=== PATIENT | male | born 1950 | race Caucasian/White ===

== ENCOUNTER 2019-04-30 14:51 | Inpatient (IN) | payer MEDICARE, OTHER ==
[~2019-04-30] VITALS: Ht 172.7 cm; Wt 108.6 kg
[2019-04-30 15:32] LABS: BASOPHILS ABSOLUTE AUTO 0.04 K/mm3 (0.00-0.23); BASOPHILS PERCENT AUTO 1 % (0-2); EOSINOPHILS ABSOLUTE AUTO 0.25 K/mm3 (0.00-0.68); EOSINOPHILS PERCENT AUTO 4 % (0-6); Hemoglobin 14.5 g/dL (13.5-17.5); IMMATURE GRAN ABSOLUTE AUTO 0.05 K/mm3 (0.00-0.10); IMMATURE GRAN PERCENT AUTO 1 % (0-1); LYMPHOCYTES ABSOLUTE AUTO 1.96 K/mm3 (0.84-5.20); LYMPHOCYTES PERCENT AUTO 29 % (21-46); MONOCYTES PERCENT AUTO 10 % (4-13); Mean Corpuscular HGB 30.1 pg (26.0-34.0); Mean Corpuscular HGB Conc 33.7 g/dL (31.5-36.5); Mean Corpuscular Volume 89 fL (80-100); Mean Platelet Volume 11.1 fL (9.1-12.4); NEUTROPHILS ABSOLUTE AUTO 3.88 K/mm3 (1.96-9.15); NEUTROPHILS PERCENT AUTO 56 % (41-73); Platelet Count 147 K/mm3 (150-400); RDW Coefficient Variation 13.6 % (11.7-14.2); Red Blood Cell Count 4.82 M/mm3 (4.30-5.90); White Blood Cell Count 6.88 K/mm3 (4.00-11.30)
[2019-04-30 15:34] LABS: Source, Urine Clean Catch
[2019-04-30 15:45] LABS: Appearance, Urine Clear (Clear); Bilirubin, Urine Neg (Neg); Blood, Urine Neg (Neg); Color, Urine Yellow (P-Yellow); Glucose Qualitative, Urine Neg (Neg); Ketones, Urine Neg (Neg); Leukocyte Esterase, Urine 1+ (Neg); Nitrite, Urine Neg (Neg); Protein, Urine Neg (Neg); Urobilinogen, Urine NORM (Normal); pH, Urine 6.5 (5.0-8.0)
[2019-04-30 15:57] LABS: Acetaminophen, Random <2.0 ug/mL (10.0-30.0); Alanine Aminotransfer (ALT/SGP 26 U/L (12-78); Albumin, Blood 3.6 g/dL (3.4-5.0); Albumin/Globulin Ratio 1.1 (0.8-1.8); Alk Phos 97 U/L (50-136); Anion Gap 6 mmol/L (6-16); Aspartate Aminotrans (AST/SGOT 17 U/L (12-37); Bilirubin, Total 0.5 mg/dL (0.1-1.0); Blood Urea Nitrogen 17 mg/dL (8-24); Bun/Creatinine Ratio 18.7 (12.0-20.0); CO2, Blood 28 mmol/L (21-32); Calcium, Blood 8.6 mg/dL (8.5-10.1); Chloride, Blood 109 mmol/L (98-108); Creatinine, Blood 0.91 mg/dL (0.60-1.20); Ethanol (Alcohol), Blood, Med <3 mg/dL; Globulin, Blood 3.4 g/dL (2.2-4.0); Glomerular Filtration Rate >60 (60-); Glucose, Blood 151 mg/dL (70-99); Potassium, Blood 2.8 mmol/L (3.5-5.5); Salicylate <1.7 mg/dL (2.8-20.0); Sodium, Blood 143 mmol/L (136-145)
[2019-04-30 15:58] LABS: Red Blood Cells, Urine 0-2 /hpf (0-2)
[2019-04-30 15:59] LABS: Bacteria Mod /hpf; Squamous Epithelial Cells Mod /hpf (Few)
[2019-04-30 16:07] LABS: U Amphetamine Screen Not Detected; U Barbituate Screen Not Detected; U Benzodiazapine Screen Not Detected; U Buprenorphine Screen Not Detected; U Cannabinoids Screen Not Detected; U Cocaine Screen Not Detected; U Methadone Screen Not Detected; U Methamphetamine Screen Not Detected; U Opiates Screen DETECTED; U Oxycodone Screen Not Detected; U Phencyclidine Screen Not Detected; U Propoxyphene Screen Not Detected
--- NOTE | 2019-04-30 19:18 | NUR ---
ASSUMED CARE OF PT, BEDSIDE REPORT RECEIVED. PT IS RESTING QUIETLY RECLINING IN BED, DENIES N/V, DENIES CP/PRESSURE, DENIES SOB/DYSPNEA. SPEECH IS NOTED SOMEWHAT SLURRED. PT LETHARGIC AND APPEARS TO RETURN TO SLEEP MIDSENTANCE WHEN ANSWERING ASSESSMENT QUESTIONS. HE ROUSES EASILY TO VERBAL STIMULI. LUNGS ARE DIM BILAT MID TO BASES, MAINTAINING SATS WITH OXYGEN AT 2L/MIN VIA NC, NO INCREASED WORK OF BREATHING IS NOTED AT THIS TIME, RESP RATE TEENS. HRR, HEART TONES DISTANT, NO MURMURS NOTED AT THIS TIME, PRESSURE MAINTAINING, PULSES FULL X 4 EXTREMITIES, SKIN PWD, NO EDEMA NOTED, BRISK CAP REFILL. ABD DISTENDED, PT REPORTS BASELINE, NO GRIMACING/GUARDING NOTED WITH PALPATION, ABD SOFT. PT C/O FEELING NEED TO VOID, ASSISTED WITH URINAL AND PT WAS UNABLE TO VOID AT THIS TIME, STATES THAT HE DOES NOT FEEL DISTRESSED AT THIS TIME AND WILL ATTEMPT AGAIN LATER. IV ACCESS NOTED RIGHT FOREARM 18 G NEAR AC, FLUSHES WELL, NO REDNESS, SWELLING, OR DRAINAGE AT INSERTION, DRESSING IS CDI. FIELD START TO LEFT AC, DRESSING CDI, FLUSHES WELL, NO REDNESS, SWELLING, OR DRAINAGE AT INSERTION.
--- NOTE | 2019-04-30 19:20 | NUR ---
PT TO ICU 2 FROM ER, CARDIAC MONITORING, VSS AT THIS TIME. PT DROWSY, SPEECH MUMBLED, ANSWERING QUESTIONS APPROPRIATELY BUT FALLING ASLEEP DURING CONVERSATION. HR 100-115 SINUS TACH, QTC 0.50, PT DENIES CHEST PAIN/PRESSURE. SPO2 >95% 2L/NC, RR 24/MIN EVEN AND UNLABORED, PT CALM AND COOPERATIVE WITH CARE. PT DENIES SUICIDAL IDEATION AT THIS TIME, DENIES TAKING MEDICATIONS OTHER THAN PRESCRIBED, STATES HE IS HAVING TROUBLE REMEMBERING WHAT HAPPENED EARLIER IN THE DAY, IS ABLE TO STATE HE ARGUED WITH HIS . PT BECOMING INCREASINGLY DROWSY DURING ASSESSMENTS, MOST INFORMATION OBTAINED FROM PT, SOME FROM [facility]. SUICIDE PRECAUTIONS IN PLACE, 1:1 VIDEO MONITORING, ITEMS REMOVED FROM ROOM, PT BELONGINGS PLACED IN LOCKING CABINET. PT SLEEPING, VS REMAIN STABLE, LR 100ML/HR INFUSING, REPORT TO ONCOMING SHIFT.
[2019-04-30] MEDS ORDERED: CELE200 PO (19:38)
[2019-04-30] MEDS ORDERED: DICLOFENAC SODIUM TOP (19:40)
[2019-04-30] MEDS ORDERED: Norco 10-325 T1 EACH PO (19:41)
[2019-04-30] MEDS ORDERED: VENL150ER PO (19:42)
[2019-04-30] MEDS ORDERED: ALBU90OI INH (19:43)
[2019-04-30] MEDS ORDERED: AMLO10 PO (19:43)
[2019-04-30] MEDS ORDERED: Atenolol25 MG PO (19:44)
[2019-04-30] MEDS ORDERED: HYDCHL25 PO (19:47)
[2019-04-30] MEDS ORDERED: FLUTICASONE PROP INH (19:47)
[2019-04-30] MEDS ORDERED: Zestril40 MG PO (19:48)
[2019-04-30] MEDS ORDERED: PULMICORT INHALER INH (19:49)
[2019-04-30] MEDS ORDERED: OMEP20ER PO (19:49)
[2019-04-30] MEDS ORDERED: POTA10T PO (19:50)
[2019-04-30] MEDS ORDERED: Zocor20 MG PO (19:50)
--- NOTE | 2019-04-30 21:00 | NUR ---
ATTEMPT TO VOID PT ASSISTED WITH URINAL WHILE RECLINING IN BED, WAS UNABLE TO VOID. ASSISTED TO DANGLE AND ATTEMPT TO USE URINAL WITHOUT SUCCESS, 2 PERSON ASSIST TO STAND AND ATTEMPT TO USE URINAL AND PT WAS UNABLE TO VOID, 2 PERSON ASSIST TO BEDSIDE COMMODE AND PT WAS UNABLE TO VOID. ASSISTED PT BACK TO BED. HE IS NOTED TO COMPLAIN OF PAIN TO LOW ABD.
--- NOTE | 2019-04-30 21:30 | NUR ---
POISON CONTROL FOLLOW UP SPOKE WITH POISON CONTROL REGARDING PT FOLLOW UP EKG DONE IN ER, CURRENT PT LOC, CURRENT PT BP, CURRENT PT HEART RATE, AND LABS. POISON CONTROL RECOMMENDS CONTINUING TO MONITOR AND REPLACING POTASSIUM, RECOMMENDED GOAL OF "4 OR A LITTLE HIGHER" CALL PLACED TO DR GU, HOSPITALIST ECONOMETRICS PROFESSOR, AND ORDERS RECEIVED.
--- NOTE | 2019-04-30 21:45 | NUR ---
BLADDER SCAN BLADDER SCAN DONE, 656 ML PER SCAN, WILL NOTIFY .
--- NOTE | 2019-04-30 22:00 | NUR ---
HAND CATH SPOKE WITH DR GU, HOSPITALIST FENCE SETTER, REGARDING PT ATTEMPTS TO VOID WITHOUT SUCCESS AND BLADDER SCAN RESULTS. ORDERS OBTAINED FOR HAND CATH PLACEMENT. 14 ARABIC COUDE CATHETER PLACED USING STERILE TECHNIQUE. PT TOLERATED WELL, STATES THAT HE HAS "A PROBLEM WITH MY PENIS" THAT THE "SKIN IS GROWING TOGETHER" WITH ATTEMPT TO RETRACT FORESKIN FOR CLEANSING. PT IS ALSO NOTED ALLERGIC TO SHELLFISH, CHLORPREP USED TO CLEANSE AREA INSTEAD OF BETADINE. PT TOLERATED PROCEDURE WELL. 775 ML OF URINE DRAINED FROM BLADDER AND PT REPORTS FEELING RELIEF.
[2019-05-01 04:53] LABS: BASOPHILS ABSOLUTE AUTO 0.05 K/mm3 (0.00-0.23); BASOPHILS PERCENT AUTO 1 % (0-2); EOSINOPHILS ABSOLUTE AUTO 0.31 K/mm3 (0.00-0.68); EOSINOPHILS PERCENT AUTO 4 % (0-6); Hematocrit 42.2 % (37.0-53.0); Hemoglobin 14.3 g/dL (13.5-17.5); IMMATURE GRAN ABSOLUTE AUTO 0.03 K/mm3 (0.00-0.10); IMMATURE GRAN PERCENT AUTO 0 % (0-1); LYMPHOCYTES ABSOLUTE AUTO 1.71 K/mm3 (0.84-5.20); LYMPHOCYTES PERCENT AUTO 23 % (21-46); MONOCYTES ABSOLUTE AUTO 0.75 K/mm3 (0.16-1.47); MONOCYTES PERCENT AUTO 10 % (4-13); Mean Corpuscular HGB 29.8 pg (26.0-34.0); Mean Corpuscular HGB Conc 33.9 g/dL (31.5-36.5); Mean Corpuscular Volume 88 fL (80-100); Mean Platelet Volume 10.4 fL (9.1-12.4); NEUTROPHILS ABSOLUTE AUTO 4.63 K/mm3 (1.96-9.15); NEUTROPHILS PERCENT AUTO 62 % (41-73); Platelet Count 146 K/mm3 (150-400); RDW Coefficient Variation 13.9 % (11.7-14.2); RDW Standard Deviation 44.2 fL (35.1-46.3); White Blood Cell Count 7.48 K/mm3 (4.00-11.30)
[2019-05-01 05:31] LABS: Anion Gap 5 mmol/L (6-16); Blood Urea Nitrogen 12 mg/dL (8-24); Bun/Creatinine Ratio 14.9 (12.0-20.0); CO2, Blood 28 mmol/L (21-32); Calcium, Blood 8.7 mg/dL (8.5-10.1); Chloride, Blood 112 mmol/L (98-108); Creatinine, Blood 0.81 mg/dL (0.60-1.20); Glomerular Filtration Rate >60 (60-); Glucose, Blood 109 mg/dL (70-99); Potassium, Blood 3.6 mmol/L (3.5-5.5); Sodium, Blood 145 mmol/L (136-145)
--- NOTE | 2019-05-01 06:02 | NUR ---
PT RESTS QUIETLY THROUGHOUT SHIFT. CONTINUES TO BE ABLE TO STATE THAT HE IS IN [facility] FOLLOWING A SEROQUEL OVERDOSE, HE IS ABLE TO STATE THAT THE SEROQUEL WERE 100 MG TABLETS. HE DENIES CURRENT SUICIDAL IDEATION. HE IS NOTED TO BE HAVING VISUAL HALLUCINATIONS AT THIS TIME, SUCH "I HAVE TO EMPTY THE NETWORK CABLER OVER THERE" AND WHEN REORIENTED TO THERE BEING NO NETWORK CABLER IN THE DIRECTION THAT HE IS POINTING, HE QUICKLY STATES, "NO THE ONE AT HOME." HE HAS ALSO DISCUSSED A CAT THAT BROKE THE WINDOW IN HIS ROOM, HAVE SHOWN THE PATIENT TWICE THAT THE GLASS IN HOSPITAL WINDOW IS NOT BROKEN. PT CONTINUES TO MAINTAIN SATS ON ROOM AIR, LUNGS REMAIN CLEAR BILAT UPPER AND DIM BILAT BASES, AT TIMES WHEN PT IS INCREASINGLY ACTIVE, HE IS NOTED TO HAVE AN AUDIBLE EXPIRATORY WHEEZE HOWEVER HE CONTINUES TO DENY SHORTNESS OF BREATH AT THESE TIMES. HRR, CONTINUES IN SINUS RHYTHM, PT HAS BEEN NOTED TO BE INTERMITTENTLY HYPERTENSIVE TO SBP OF 170 HOWEVER THIS HAS BEEN RESOLVING WITHOUT INTERVENTION. HE WAS UNABLE TO VOID LAST EVENING AND BLADDER SCAN REVEALED 656 ML URINE PRESENT IN BLADDER, CALL PLACED TO DR GU REGARDING URINARY RETENTION AND ORDERS FOR HAND WERE RECEIVED. HAND CATH PLACED AND PT TOLERATED WELL, GOOD URINE OUTPUT THIS SHIFT.
--- NOTE | 2019-05-01 08:42 | NUR ---
0720: CARE ASSUMED, ASSESSMENT COMPLETED. PT SITTING UP IN BED PICKING AT WIRES AND BEDDING, SEEMS TO BE HAVING VISUAL HALLUCINATIONS. PT ORIENTED TO SELF AND PLACE, NEEDS REDIRECTION AT TIMES, BECOMES DEFENSIVE AND AGITATED AT REDIRECTION. PT FOLLOWS COMMANDS, DENIES NEEDS AT THIS TIME. 0800: PT SITTING IN BED EATING BREAKFAST, DR. BERMUDEZ IN TO SEE PT. 0900: BEDBATH GIVEN, PT ALERT AND COOPERATIVE WITH CARE. WHEN ASKED ABOUT YESTERDAYS EVENTS, PT STATES HE HAD ARGUED WITH HIS AND AFTER SHE TOLD HIM HE NEVER DOES ANYTHING, PT SAYS, "WELL WATCH THIS" AND THEN TOOK A HANDFUL OF SEROQUEL. PT STATES HE WAS NOT SUICIDAL AT THE TIME AND IS NOT SUICIDAL NOW, HE WANTED TO GET HIS 'S ATTENTION "AND IT WORKED, DIDN'T IT?"
--- NOTE | 2019-05-01 10:17 | NUR ---
ORAL MEDS TOLERATED WELL. SPOKE WITH POISON CONTROL, NO NEW RECOMMENDATIONS RECEIVED. PT LYING IN BED, IS SLIGHTLY AGITATED STATING HE WANTS HIS PROPERTY THAT IS ON THE COUNTER, PT REDIRECTED, IS NOW LYING IN BED QUIETLY. PT REMAINS FIDGETY BUT IS NOT PULLING LINES/CORDS.
--- NOTE | 2019-05-01 10:25 | NUR ---
LATE ENTRY: 0700: QT INTERVAL 0.4, QTC INTERVAL 0.432, BP HYPERTENSIVE, PT ASYMPTOMATIC.
--- NOTE | 2019-05-01 11:46 | NUR ---
PT SITTING UP IN BED, REMAINS FIDGETY AND CONFUSED BUT REDIRECTABLE, CONTINUES TO HAVE VISUAL HALLUCINATIONS. PT HAS BEEN APPROPRIATE, DENIES SUICIDAL IDEATION, ALLOWED TO TALK ON PHONE TO BRIEFLY, PHONE THEN REMOVED FROM ROOM. PT NOW SITTING UP EATING LUNCH. 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
--- NOTE | 2019-05-01 13:23 | NUR ---
PT AGITATED, STATES BED IS HURTING HIS BACK, IS IMPULSIVE AND TRYING TO GET UP. PT ASSISTED TO CHAIR, TAB ALARM ON, CALL LIGHT AND ROOT BEER IN REACH.
--- NOTE | 2019-05-01 15:38 | NUR ---
PT REMAINS UP IN CHAIR, STATES HE IS MORE COMFORTABLE. PT CONFUSED, HALLUCINATIONS CONTINUE, PT TALKS TO SELF AT TIMES, TOLD THIS RN THERE WAS A KITTEN IN HIS ROOM EARLIER. PT ATTEMPTING TO GET UP OUT OF CHAIR TO GO HOME, REORIENTED FREQUENTLY, DENIES PAIN OR SOB.
--- NOTE | 2019-05-01 18:36 | NUR ---
1700: PT ASSISTED BACK TO BED PER HIS REQUEST, VSS. 1835: PT TOLERATED DINNER WELL, VS REMAIN STABLE. QT AND QTc WNL THIS SHIFT , NSR, NO HYPOTENSION OR DROWSINESS, PT HAS EXPERIENCED EXTRAPYRAMIDAL SX T/O SHIFT INCLUDING TREMORS, PARKINSONIAN SX AND DRY MOUTH, REMAINS CONFUSED AND HAVING AUDIO/VISUAL HALLUCINATIONS. PT DENIES S.I., SUICIDE PRECAUTIONS REMAIN IN PLACE, BED ALARM ON. PT FIDGITING AT THIS TIME, REORIENTS EASILY.
--- NOTE | 2019-05-01 19:15 | NUR ---
ASSUMED CARE, BEDSIDE REPORT RECEIVED PT IS NOTED TO BE RESTLESS, STATES THAT THIS IS SOMEWHAT NORMAL FOR HIM AND THAT "I COULDN'T HOLD STILL FOR AN HOUR IN THE MRI." HE INITIALLY STATES THAT HE IS IN [facility] AT THE STATE POLICE STATION ON [place] HOWEVER AFTER LOOKING AROUND ROOM HE STATES THAT HE IS AT [facility]. HE STATES THAT HE WAS ADMITTED FOR TAKING A BUNCH OF PILLS AND THAT HIS CALLED THE POLICE AFTER HE HAD TAKEN THEM. HE PROVIDES THE DATE APRIL 21, 2019. HE DENIES CURRENT AUDITORY HALLUCINATIONS HOWEVER STATES THAT HE DOES STILL HAVE SOME VISUAL HALLUCINATIONS AND THAT HE EITHER SEES PEOPLE IN THE ROOM OR CATS. DENIES N/V, DENIES CP/PRESSURE, DENIES SOB/DYSPNEA, DENIES NUMBNESS/TINGLING. HE STATES THAT HE HAS 8/10 PAIN TO HIS RIGHT SHOULDER AND NECK AT THIS TIME FROM AN OLD INJURY, HE DECLINES INTERVENTIONS AT THIS TIME STATING THAT HE IS FINE AND THAT HE DOES NOT NORMALLY DO ANYTHING TO CONTROL THIS PAIN AT HOME AND THAT IT WILL RESOLVE WITHOUT INTERVENTION. LUNGS HAVE DIM BASES BILAT WITH FINE CRACKLES NOTED, RESOLVE WITH COUGH, NO INCREASED WORK OF BREATHING IS NOTED, SATS ARE MAINTAINING ON ROOM AIR, RESP RATE HIGH TEENS TO LOW 20S WITH PERIODS OF INCREASED RESTLESSNESS. HRR, SINUS WITH RATE 70-80S CURRENTLY, PRESSURED IMPROVED WITH HOME MEDS TODAY, PULSES REMAIN FULL X 4 EXTREMITIES, SKIN PWD, BRISK CAP REFILL, NO EDEMA NOTED. ABD REMAINS DISTENDED, PT STATES IS NORMAL, HYPOACTIVE BOWEL TONES, SOFT, NO GRIMACING OR GAURDING ON PALPATION. HAND REMAINS IN PLACE DRAINING CLEAR YELLOW URINE TO GRAVITY. IV ACCESS TO RIGHT FOREARM 18 G INFUSING LR AT 100 ML/HR SITE WNL, NO REDNESS, SWELLING, OR DRAINAGE AT INSERTION. SALINE LOCK TO LEFT AC, DRESSING CDI, NO REDNESS, SWELLING, OR DRAINAGE AT INSERTION. WILL CONT TO MONITOR, REDIRECT AND REORIENT NEEDED.
--- NOTE | 2019-05-02 06:36 | NUR ---
PT AWAKE FREQUENTLY THROUGHOUT SHIFT, CONTINUES TO DENY N/V, DENIES CP/PRESSURE, DENIES SOB/DYSPNEA, PAIN TO RIGHT SHOULDER AREA HAS RESOLVED, HE DOES ADMIT TO HAVING A HEADACHE THIS AM, STATES THAT HE DOES NORMALLY DRINK A LOT OF TEA. FEWER HALLUCINATIONS HAVE BEEN NOTED THIS SHIFT HAS PROGRESSED, PT DOES CONTINUE TO BE IMPULSIVE, HE IS NOTED TO BE LESS RESTLESS THIS AM. HE DID GET UP OOB WITHOUT ASSIST NEAR 0500, EXPLAINED FALL PRECAUTIONS AND REASON FOR THEM TO PT, HE STATES THAT HE WILL CALL FOR ASSISTANCE, HE SAYS "I JUST WANTED TO GO FOR A WALK." DISCUSSED PT'S GAIT AND THAT HE HAS BEEN UNSTEADY ON HIS FEET AND WOULD REQUIRE ASSISTANCE WITH AMBULATION FOR SAFETY. ASSESSMENT OTHERWISE REMAINS UNCHANGED THIS SHIFT.
--- NOTE | 2019-05-02 09:59 | NUR ---
ASSUMED CARE / DR. BERMUDEZ / POISON CONTROL: REPORT RECEIVED FROM SHERRY Philippe RN. ASSUMED CARE OF THIS PT AT APPROX 0700. ON ASSESSMENT, THE PT IS RESTING QUIETLY. HE AWAKENS EASILY & IS NOW A&O x4. HE IS ABLE TO VERBALIZE CLEARLY THE CIRCUMSTANCES OF HIS ADMISSION, ALTHOUGH HE DOES NOT REMEMBER WHAT MEDS OR HOW MUCH HE TOOK AT THE TIME. HE STS TO THIS RN THAT HE WAS "STUPID" & "TRYING TO PROVE A POINT" TO HIS . HE ALSO STS THAT HE "WOULD NEVER DO IT AGAIN" & DENIES ANY SI. CAMERA REMAINS ON & SI PRECAUTIONS IN PLACE. PROVIDER AT BEDSIDE TO SEE PT, ORDERS PLACED TO CONSULT DR. DEAL. FACESHEET SENT TO ED REGARDING THIS. CALL FROM POISON CONTROL, THEY HAVE BEEN UPDATED ON PT's CONDITION & STATE THEY ARE SIGNING OFF AT THIS TIME. WILL CONTINUE TO MONITOR & UPDATE NEEDED.
--- NOTE | 2019-05-02 16:27 | NUR ---
DR. DEAL / DR. BERMUDEZ / UPDATE: PROVIDER AT BEDSIDE TO SEE PT. HE HAS EVALUATED THE PT & DECIDED TO DROP THE PT's HOLD & HIGH RISK SUICIDE PRECAUTIONS. CAMERA SYNTHETIC CHEMIST HAS BEEN NOTIFIED & CAMERA HAS BEEN TURNED OFF. DR. BERMUDEZ HAS BEEN CONTACTED BY DR. DEAL TO NOTIFY HIM OF HOLD BEING DROPPED, STS PT IS OKAY TO D/C HOME FROM PSYCHIATRIC STANDPOINT. DR BERMUDEZ AT BEDSIDE TO SEE PT, HE STS OKAY FOR PT TO D/C HOME & ORDERS PLACED. THE PT HAS CALLED HIS & NOTIFIED HER OF PENDING D/C. SHE HAS CALLED THIS RN & ASKED IF THE PT IS REALLY TO BE DISCHARGED TODAY & ASKS HOW THE HOLD COULD ALREADY BE DROPPED. IT IS EXPLAINED TO HER THAT DR DEAL HAS BEEN IN TO EVAL THE PT & AFTER THIS EVAL, HAS DECIDED THAT THE PT IS NOT A RISK TO HIMSELF AT THIS TIME. BECAUSE OF THIS, THE HOSPITAL HOLD HAS BEEN DROPPED & DR BERMUDEZ HAS DEEMED HIM MEDICALLY STABLE ENOUGH TO DISCHARGE HOME. THE PT's , MALENA, STS "I CANNOT BELIEVE THIS. WHEN SOMETHING HAPPENS TO HIM AT HOME, I WILL BE HOLDNG YOU & THAT HOSPITAL PERSONALLY RESPONSIBLE" & QUICKLY HANGS UP THE PHONE ON THIS RN. WILL CONTINUE TO MONITOR & UPDATE NEEDED.
--- NOTE | 2019-05-02 16:46 | NUR ---
Per admit trigger, I was tasked to see mr Delgadillo to discuss Advacned Directives. As he is here for a suicide attempt, this did not seem to be the time for this conversation.
--- NOTE | 2019-05-02 17:25 | NUR ---
DISCHARGE TO HOME: PT's AT BEDSIDE, SHE IS APOLOGETIC FOR PRIOR CONVERSATION NOTED. STS SHE "OVERREACTED" & SHOULDN'T HAVE BEEN SO ANGRY W/ THIS RN. DISCHARGE TEACHING HAS BEEN COMPLETED, ALL QUESTIONS ANSWERED FOR THE PT & HIS SPOUSE. SHE IS ENCOURAGED BY THIS RN TO WRITE DOWN ANY QUESTIONS FOR THE PT's PCP & TO ASK THEM AT HIS FOLLOW-UP APPOINTMENT. THIS RN ATTEMPTED TO SCHEDULE PT's FOLLOW-UP APPOINTMENT, BUT [facility] AT [facility]. PT HAS BEEN INSTRUCTED TO CALL & SCHEDULE THIS APPOINTMENT FIRST THING TOMORROW AM. D/C PACKET & ALL BELONGINGS HAVE BEEN TAKEN OUT W/ PT, ALONG W/ EDUCATIONAL MATERIALS REGARDING SUICIDAL IDEATION & DRUG OVERDOSE. PIV & ALL MONITORS HAVE BEEN REMOVED. PT HAS BEEN TAKEN OUT BY GUADALUPE STILES.
== END 2019-05-02 17:20 | disposition home or self-care (01) | DRG 918 ==
LOC: ER 14:51 → ICUW 15:17 → ICUE 17:31
PROVIDERS: Emergency Medicine; ADMIT Internal Medicine
DX: T43.592A Poisoning by other antipsychotics and neuroleptics, intentional self-harm, initial encounter (principal); I10 Essential (primary) hypertension; E78.5 Hyperlipidemia, unspecified; F31.9 Bipolar disorder, unspecified; F43.10 Post-traumatic stress disorder, unspecified; Z96.652 Presence of left artificial knee joint; Y92.9 Unspecified place or not applicable; R29.818 Other symptoms and signs involving the nervous system; R33.9 Retention of urine, unspecified; R68.2 Dry mouth, unspecified; R00.0 Tachycardia, unspecified; E87.6 Hypokalemia
CPT/HCPCS: 36415; 51702; 80048; 80053; 81001; 83735; 84443; 85025; 87086; 93005; 93010; 94640; 96374; 97110; 97116; 97161; 99285-25; A9270; G0480; J3475; J3480; J7120

== ENCOUNTER 2021-06-14 18:23 | Inpatient (IN) | payer OTHER ==
[~2021-06-14] VITALS: Ht 172.7 cm; Wt 108.9 kg
[~2021-06-14 18:23] MED LIST: ALBU90OI INH; AMLO10 PO; Atenolol25 MG PO; CELE200 PO; DICLOFENAC SODIUM TOP; Flovent 220 Ora12 GM INH; HYDROCHLOROTH12.5 MG PO; Norco 10-325 T1 EACH PO; OMEP20ER PO; POTA10T PO; PULMICORT INHALER INH; VENL75ER PO; Zestril40 MG PO; Zocor20 MG PO
[2021-06-14] MEDS ORDERED: DONE5 PO (19:02)
[2021-06-14] MEDS ORDERED: FINA5 PO (19:03)
[2021-06-14] MEDS ORDERED: IBUP400 PO (19:14)
[2021-06-14] MEDS ORDERED: ASMANEX HFA13 G4 INH (19:16)
[2021-06-14 20:11] LABS: BASOPHILS ABSOLUTE AUTO 0.03 K/mm3 (0.00-0.23); BASOPHILS PERCENT AUTO 0 % (0-2); EOSINOPHILS ABSOLUTE AUTO 0.09 K/mm3 (0.00-0.68); EOSINOPHILS PERCENT AUTO 1 % (0-6); Hematocrit 39.1 % (37.0-53.0); Hemoglobin 13.2 g/dL (13.5-17.5); IMMATURE GRAN PERCENT AUTO 1 % (0-1); LYMPHOCYTES ABSOLUTE AUTO 1.26 K/mm3 (0.84-5.20); LYMPHOCYTES PERCENT AUTO 14 % (21-46); MONOCYTES ABSOLUTE AUTO 0.96 K/mm3 (0.16-1.47); MONOCYTES PERCENT AUTO 11 % (4-13); Mean Corpuscular HGB 28.9 pg (26.0-34.0); Mean Corpuscular HGB Conc 33.8 g/dL (31.5-36.5); Mean Corpuscular Volume 86 fL (80-100); Mean Platelet Volume 12.6 fL (9.1-12.4); NEUTROPHILS ABSOLUTE AUTO 6.31 K/mm3 (1.96-9.15); NEUTROPHILS PERCENT AUTO 72 % (41-73); Platelet Count 305 K/mm3 (150-400); RDW Coefficient Variation 13.6 % (11.7-14.2); RDW Standard Deviation 42.8 fL (35.1-46.3); Red Blood Cell Count 4.56 M/mm3 (4.30-5.90); White Blood Cell Count 8.75 K/mm3 (4.00-11.30)
[2021-06-14 20:27] LABS: Alanine Aminotransfer (ALT/SGP 61 U/L (12-78); Albumin, Blood 2.4 g/dL (3.4-5.0); Albumin/Globulin Ratio 0.5 (0.8-1.8); Alk Phos 89 U/L (50-136); Anion Gap 9 mmol/L (6-16); Aspartate Aminotrans (AST/SGOT 65 U/L (12-37); Bilirubin, Total 1.6 mg/dL (0.1-1.0); Blood Urea Nitrogen 28 mg/dL (8-24); Bun/Creatinine Ratio 27.2 (12.0-20.0); CO2, Blood 23 mmol/L (21-32); Calcium, Blood 8.2 mg/dL (8.5-10.1); Chloride, Blood 105 mmol/L (98-108); Creatinine, Blood 1.03 mg/dL (0.60-1.20); Globulin, Blood 4.8 g/dL (2.2-4.0); Glomerular Filtration Rate >60 (60-); Glucose, Blood 131 mg/dL (70-99); Sodium, Blood 137 mmol/L (136-145); Total Protein, Blood 7.2 g/dL (6.4-8.2); Troponin I <0.015 ng/mL (0.000-0.040)
[2021-06-14 21:28] LABS: Magnesium, Blood 1.9 mg/dL (1.6-2.4)
[2021-06-14 21:59] LABS: PCO2 Arterial 27.8 mmHg (35-45); PO2 Arterial 58.1 mmHg (80-100); pH Blood Arterial 7.54 (7.35-7.45)
[2021-06-15 06:49] LABS: Anion Gap 8 mmol/L (6-16); Blood Urea Nitrogen 22 mg/dL (8-24); CO2, Blood 24 mmol/L (21-32); Calcium, Blood 8.9 mg/dL (8.5-10.1); Chloride, Blood 104 mmol/L (98-108); Creatinine, Blood 0.85 mg/dL (0.60-1.20); Glomerular Filtration Rate >60 (60-); Glucose, Blood 150 mg/dL (70-99); Magnesium, Blood 2.4 mg/dL (1.6-2.4); Potassium, Blood 3.7 mmol/L (3.5-5.5); Sodium, Blood 136 mmol/L (136-145)
--- NOTE | 2021-06-15 18:20 | NUR ---
SHIFT SUMMARY ED ADMIT THIS AFTERNOON. PATIENT SETTLED INTO ROOM. DENIES PAIN AND NAUSEA. 4L/NC TO MAINTAIN OXYGEN SATURATION ABOVE 92%. UP SBA W/CANE, URINAL AT BEDSIDE. PLEASANT AND COOPERATIVE WITH CARE.
--- NOTE | 2021-06-16 04:13 | NUR ---
GEODETIC TECHNICIAN SUMMARY HAS BEEN RESTING QUIETLY WITH FEW INTERRUPTIONS SINCE HS WITH O2 AT 4L/MIN PER NC. LUNG SOUNDS DIMINISHED IN LOWER LOBES PER AUSCULTATION. CONTINENT - VOIDED QS IN URINAL- ERIKA IN COLOR. ORIENTED TO USE OF CALL LIGHT - USING IT FOR ASSISTANCE. ISOLATION PRECAUTIONS MAINTAINED. ALTHOUGH COUGHING, NO NOTED EXPECTORANT. CALL LIGHT IN REACH
[2021-06-16 05:45] LABS: Hematocrit 40.8 % (37.0-53.0); Hemoglobin 13.5 g/dL (13.5-17.5); Mean Corpuscular HGB 28.7 pg (26.0-34.0); Mean Corpuscular HGB Conc 33.1 g/dL (31.5-36.5); Mean Corpuscular Volume 87 fL (80-100); Mean Platelet Volume 11.8 fL (9.1-12.4); Platelet Count 403 K/mm3 (150-400); RDW Coefficient Variation 13.5 % (11.7-14.2); RDW Standard Deviation 42.7 fL (35.1-46.3); White Blood Cell Count 12.39 K/mm3 (4.00-11.30)
[2021-06-16 06:10] LABS: Anion Gap 8 mmol/L (6-16); Blood Urea Nitrogen 29 mg/dL (8-24); Bun/Creatinine Ratio 34.9 (12.0-20.0); CO2, Blood 25 mmol/L (21-32); Calcium, Blood 8.9 mg/dL (8.5-10.1); Chloride, Blood 105 mmol/L (98-108); Creatinine, Blood 0.83 mg/dL (0.60-1.20); Glomerular Filtration Rate >60 (60-); Glucose, Blood 121 mg/dL (70-99); Potassium, Blood 3.2 mmol/L (3.5-5.5); Sodium, Blood 138 mmol/L (136-145)
--- NOTE | 2021-06-16 16:29 | NUR ---
SHIFT SUMMARY PATIENT DENIES PAIN, NAUSEA, AND SHORTNESS OF BREATH. MAINTAINING OXYGEN SATURATION ABOVE 92% ON 4L/NC. UP SBA TO BR. POOR APPETITE. PLEASANT AND COOPERATIVE WITH CARE.
--- NOTE | 2021-06-16 21:56 | NUR ---
connected ph call to icu 16 so he could speak with his as she is on vent and possible not going to make it. Isolation precautions maintained. call light in reach
--- NOTE | 2021-06-17 03:20 | NUR ---
AUTO DISMANTLER SUMMARY HAS BEEN RESTING QUIETLY WITH FEW INTERRUPTIONS. REQUESTED TO SPEAK TO OVER THE PHONE WHO IS IN THE ICU ON VENT AND APPARENT COMA. PT VOICED HE WANTED TO SAY GOOD BYE IN CASE SHE DIDNT MAKE IT. O2 PER NC AT 4L/MIN. CONTINUOUS PULSE OX SATS IN THE 90'S. HR IN THE 50'S. DROPLET PRECAUTIONS FOR COVID MAINTAINED. CALL LIGHT IN REACH. NO NOTED S/S ACUTE DISTRESS. WILL CONTINUE TO MONITOR
[2021-06-17 06:11] LABS: Anion Gap 9 mmol/L (6-16); Blood Urea Nitrogen 28 mg/dL (8-24); Bun/Creatinine Ratio 33.8 (12.0-20.0); CO2, Blood 24 mmol/L (21-32); Calcium, Blood 8.8 mg/dL (8.5-10.1); Chloride, Blood 107 mmol/L (98-108); Creatinine, Blood 0.83 mg/dL (0.60-1.20); Glomerular Filtration Rate >60 (60-); Glucose, Blood 95 mg/dL (70-99); Potassium, Blood 3.6 mmol/L (3.5-5.5); Sodium, Blood 140 mmol/L (136-145)
--- NOTE | 2021-06-17 17:29 | NUR ---
SHIFT SUMMARY PATIENT DENIES PAIN, NAUSEA, AND SHORTNESS OF BREATH. WEANED TO 2L/NC TODAY AND MAINTAINING OXYGEN SATURATION ABOVE 92%. SBA TO BR FOR LINE MANAGEMENT. HOME 02 EVAL ORDERED. PLEASANT AND COOPERATIVE WITH CARE.
--- NOTE | 2021-06-18 06:30 | NUR ---
TECH WRITER SUMMARY ADMITTED FOR COVID. PT IS FULL CODE. PT HAS BEEN RESTING COMFORTABLY WITH NO COMPLAINTS.
--- NOTE | 2021-06-18 07:30 | NUR ---
ASSUMED CARE: PT SITTING IN RECLINER ON 1L O2. NO ACUTE NEEDS AT THIS TIME.
--- NOTE | 2021-06-18 10:30 | NUR ---
INTERNAL COMBUSTION ENGINE ASSEMBLER DISCUSSED WITH PT HIS OXYGEN OPTIONS. O2 MAY REQUIRE A COPAY AND PT WANTS DC WARP KNIT OPERATOR TO TRY FOR OXYGEN FROM THE [facility]. DC WARP KNIT OPERATOR AGREES TO WORK ON THIS
[2021-06-18] MEDS ORDERED: Acetaminophen650 M1 PO (13:03)
[2021-06-18] MEDS ORDERED: DEXA6 PO (13:04)
[2021-06-18] MEDS ORDERED: GUAI600T33 PO (13:04)
--- NOTE | 2021-06-18 13:09 | NUR ---
DR GU MADE AWARE IN DELAY OF DISCHARGE DUE TO OXYGEN ORDERS NEEDING TO BE MADE THROUGH [facility]
--- NOTE | 2021-06-18 15:04 | NUR ---
VICKY CERON SPOKE WITH PT'S FAMILY TO COORDINATE A RIDE FOR 4:30 THIS AFTERNOON. PT TAKEN VIA WHEEL CHAIR TO VISIT HIS IN ICU IN THE MEANTIME. ROLL RECLAIMER AWARE PERMITTED VISIT AND WILL CALL WHEN PT IS READY TO COME BACK TO ROOM
--- NOTE | 2021-06-18 15:42 | NUR ---
PT TRANSFERRED BACK TO ROOM VIA WHEEL CHAIR AFTER VISITING IN ICU
--- NOTE | 2021-06-18 18:07 | NUR ---
DISCHARGE INSTRUCTIONS GIVEN TO PT, INCLUDING FOLLOW UP APPOINTMENTS AND MEDICATIONS TO GET FROM [facility]. PT TRANSFERRED OUT VIA WHEEL CHAIR BY HOSPITAL STAFF.
== END 2021-06-18 17:29 | disposition home or self-care (01) | DRG 177 ==
LOC: ER 18:23 → MEDS 21:24 → ERHOLD 21:24 → MEDS 06-15 16:00
PROVIDERS: Family Medicine; Internal Medicine; Student in an Organized Health Care Education/Training Program; ADMIT Internal Medicine
PROC: 3E0333Z Introduction of Anti-inflammatory into Peripheral Vein, Percutaneous Approach (ICD-10-PCS; principal; 2021-06-14)
PROC: 8E0ZXY6 Isolation (ICD-10-PCS; 2021-06-14)
DX: U07.1 COVID-19 (principal); J12.82 Pneumonia due to coronavirus disease 2019; J96.01 Acute respiratory failure with hypoxia; J44.0 Chronic obstructive pulmonary disease with (acute) lower respiratory infection; N40.0 Benign prostatic hyperplasia without lower urinary tract symptoms; I10 Essential (primary) hypertension; Z96.652 Presence of left artificial knee joint; E87.6 Hypokalemia; F31.9 Bipolar disorder, unspecified; F43.20 Adjustment disorder, unspecified; F41.9 Anxiety disorder, unspecified; F03.90 Unspecified dementia, unspecified severity, without behavioral disturbance, psychotic disturbance, mood disturbance, and anxiety; Z90.89 Acquired absence of other organs; Z88.0 Allergy status to penicillin; Z91.013 Allergy to seafood; Z98.890 Other specified postprocedural states; Z79.51 Long term (current) use of inhaled steroids; Z79.899 Other long term (current) drug therapy; Z91.5 Personal history of self-harm
CPT/HCPCS: 36415; 36600; 71045; 80048; 80053; 82803; 82947; 83735; 84484; 85025; 85027; 85379; 93005; 93010; 94640; 94664; 94760; 94761; 94762; 96372-59; 96374; 99285-25; A9270; J1100; J1650

== ENCOUNTER 2023-08-10 13:11 | Emergency (ER) | payer OTHER ==
[~2023-08-10] VITALS: Ht 170.2 cm; Wt 95.2 kg
[~2023-08-10 13:11] MED LIST changes: +ASMANEX HFA13 G4 INH; +Acetaminophen650 M1 PO; +DEXA6 PO; +DONE5 PO; +FINA5 PO; +GUAI600T33 PO; +IBU800 MG PO; +IBUP400 PO
[2023-08-10 13:42] LABS: BASOPHILS ABSOLUTE AUTO 0.04 K/mm3 (0.00-0.23); BASOPHILS PERCENT AUTO 1 % (0-2); EOSINOPHILS ABSOLUTE AUTO 0.14 K/mm3 (0.00-0.68); EOSINOPHILS PERCENT AUTO 2 % (0-6); Hematocrit 46.9 % (37.0-53.0); Hemoglobin 16.3 g/dL (13.5-17.5); IMMATURE GRAN ABSOLUTE AUTO 0.04 K/mm3 (0.00-0.10); IMMATURE GRAN PERCENT AUTO 1 % (0-1); LYMPHOCYTES ABSOLUTE AUTO 1.98 K/mm3 (0.84-5.20); LYMPHOCYTES PERCENT AUTO 29 % (21-46); MONOCYTES ABSOLUTE AUTO 0.62 K/mm3 (0.16-1.47); MONOCYTES PERCENT AUTO 9 % (4-13); Mean Corpuscular HGB 28.9 pg (26.0-34.0); Mean Corpuscular HGB Conc 34.8 g/dL (31.5-36.5); Mean Corpuscular Volume 83 fL (80-100); Mean Platelet Volume 11.8 fL (9.1-12.4); NEUTROPHILS ABSOLUTE AUTO 3.94 K/mm3 (1.96-9.15); NEUTROPHILS PERCENT AUTO 58 % (41-73); Platelet Count 176 K/mm3 (150-400); RDW Coefficient Variation 13.2 % (11.7-14.2); RDW Standard Deviation 39.8 fL (35.1-46.3); Red Blood Cell Count 5.64 M/mm3 (4.30-5.90); White Blood Cell Count 6.76 K/mm3 (4.00-11.30)
[2023-08-10 13:57] LABS: Albumin, Blood 4.2 g/dL (3.4-5.0); Bilirubin, Total 0.6 mg/dL (0.1-1.0); Bun/Creatinine Ratio 15.3 (12.0-20.0); Calcium, Blood 9.7 mg/dL (8.5-10.1); Creatinine, Blood 1.37 mg/dL (0.60-1.20); Globulin, Blood 4.2 g/dL (2.2-4.0); Potassium, Blood 3.5 mmol/L (3.5-5.5); Total Protein, Blood 8.4 g/dL (6.4-8.2)
[2023-08-10 15:09] VITALS: BP 159/88
[2023-08-10 16:10] LABS: Influenza A, PCR NEGATIVE (NEGATIVE); Influenza B, PCR NEGATIVE (NEGATIVE); Resp Syncytial Virus, PCR NEGATIVE (NEGATIVE); SARS-Cov-2 (COVID-19) PCR, MMC NEGATIVE (NEGATIVE)
== END 2023-08-10 15:30 | disposition home or self-care (01) ==
LOC: ER 13:11
PROVIDERS: Physician Assistant; Student in an Organized Health Care Education/Training Program
DX: J06.9 Acute upper respiratory infection, unspecified (principal); I10 Essential (primary) hypertension; J44.9 Chronic obstructive pulmonary disease, unspecified; F03.90 Unspecified dementia, unspecified severity, without behavioral disturbance, psychotic disturbance, mood disturbance, and anxiety; F32.A Depression, unspecified; F41.9 Anxiety disorder, unspecified; Z88.0 Allergy status to penicillin; Z91.013 Allergy to seafood; Z79.899 Other long term (current) drug therapy; Z86.16 Personal history of COVID-19
CPT/HCPCS: 0241U; 80053; 83690; 85025

== ENCOUNTER 2025-01-02 07:14 | Day surgery (SDC) | payer OTHER ==
[~2025-01-02] VITALS: Ht 172.7 cm; Wt 110.0 kg
[2025-01-02] VITALS (14 sets, daily range): BP systolic 101–148; BP diastolic 57–88
[~2025-01-02 07:14] MED LIST changes: +CEPH500 PO; +OXYC5 PO
[2025-01-02] MEDS ORDERED: Ropivacaine 0.5% HCl/Pf 123.125 MG,EPINEPHrine HCL 0.25 MG,Ketorolac Tromethamine 15 MG... INFIL SCH (07:20)
[2025-01-02] MEDS ORDERED: Chlorhexidine Mouth Care 15 ML UDC MT SCH (07:20)
[2025-01-02] MEDS ORDERED: OxyCODONE HCL 10 MG TABCR PO SCH (07:20)
[2025-01-02] MEDS ORDERED: Lactated Ringer's 1,000 ML IV SCH ×2 (07:20→08:25)
[2025-01-02] MEDS ORDERED: Acetaminophen 500 MG Tab PO SCH ×2 (07:20→16:00)
[2025-01-02] MEDS ORDERED: CeFAZolin Sodium 2,000 MG in NS 100 ML IV SCH ×2 (07:20→17:30)
[2025-01-02] MEDS ORDERED: Tranexamic Acid 100 ML IV SCH (07:20)
[2025-01-02] MEDS ORDERED: KLOR-CON M1010 MEQ PO (07:40)
[2025-01-02] MEDS ORDERED: DICLOFENAC SOD100 GM TP (07:40)
[2025-01-02] MEDS ORDERED: ZYRTEC10 M2 PO (07:41)
[2025-01-02] MEDS ORDERED: Midazolam HCl 1MG / ML 2ML Vial ONE (08:01)
[2025-01-02] MEDS ORDERED: propofoL 100 ML IV ONE (08:01)
[2025-01-02] MEDS ORDERED: FentaNYL Citrate 50 MCG/ML 2 ML Injection ONE (08:01)
[2025-01-02] MEDS ORDERED: OxyCODONE HCL 5 MG TAB PO PRN ×2 (08:15→08:20)
[2025-01-02] MEDS ORDERED: Bisacodyl 10 MG Supp PR PRN (08:20)
[2025-01-02] MEDS ORDERED: Promethazine HCl 25 MG Tab PO PRN (08:20)
[2025-01-02] MEDS ORDERED: Magnesium Hydroxide Conc 10 ML UDC PO PRN (08:25)
[2025-01-02] MEDS ORDERED: FLU VACC TS2024-25(6MOS UP)/PF 45 MCG/0.5 ML SYRINGE IM SCH (08:25)
[2025-01-02] MEDS ORDERED: HYDROmorphone HCl 0.5 MG/0.5 ML SYR IV PRN ×2 (08:25→09:50)
--- NOTE | 2025-01-02 08:28 | NUR ---
PT TO SDS VIA WC. PT ABLE TO STAND FOR HEIGHT/WEIGHT AND REPORTS USING WC FOR LONG DISTANCES. History, Chart, Medications and Allergies reviewed before start of procedure. Lungs clear T/O to Auscultation. Patient confirms NPO status and agrees with scheduled surgery. Pre-Op teaching done. Pt verbalizes understanding. PT BELONGINGS PLACED UNDERNEATH GURNEY FOR SAFEKEEPING. PT GLASSES TAKEN TO PACU FOR SAFEKEEPING.
[2025-01-02] MEDS ORDERED: Ondansetron HCl 2 MG / ML 2ML Vial IV PRN (08:30)
[2025-01-02] MEDS ORDERED: Metoclopramide HCl 5MG / ML 2ML Vial IV PRN (08:30)
[2025-01-02] MEDS ORDERED: Albuterol HFA200 ACT/6.7 GM INH INH PRN (08:35)
[2025-01-02] MEDS ORDERED: DiphenhydrAMINE HCL 25 MG Cap PO PRN (08:40)
[2025-01-02] MEDS ORDERED: Misc. Inhaler INH SCH (08:40)
[2025-01-02] MEDS ORDERED: Vancomycin HCL 1,000 MG in NS 250 ML IV SCH (08:55)
[2025-01-02] MEDS ORDERED: Docusate Sodium 100 MG Cap PO SCH (09:00)
[2025-01-02] MEDS ORDERED: Fluticasone 0.05% Nasal Spray SCH (09:00)
[2025-01-02] MEDS ORDERED: Potassium Chloride 20 MEQ TabCR PO SCH (09:00)
[2025-01-02] MEDS ORDERED: Loratadine 10 MG Tab PO SCH (09:00)
[2025-01-02] MEDS ORDERED: Finasteride 5 MG Tab PO SCH (09:00)
[2025-01-02] MEDS ORDERED: dexAMETHasone 4 MG TAB PO SCH (09:00)
[2025-01-02] MEDS ORDERED: Venlafaxine HCl 75 MG CapCR PO SCH (09:00)
[2025-01-02] MEDS ORDERED: HydroCHLOROthiazide 25 mg Tab PO SCH (09:00)
[2025-01-02] MEDS ORDERED: Atenolol 25 MG Tab PO SCH (09:00)
[2025-01-02] MEDS ORDERED: Lisinopril 20 MG Tab PO SCH (09:00)
[2025-01-02] MEDS ORDERED: Atorvastatin 10 MG Tab PO SCH (09:00)
[2025-01-02] MEDS ORDERED: FentaNYL Citrate 50 MCG/ML 2 ML Injection IV PRN ×3 (09:50)
[2025-01-02] MEDS ORDERED: Ondansetron HCl 2 MG / ML 2ML Vial ONE (09:55)
[2025-01-02] MEDS ORDERED: HydrALAZINE HCl 20 MG / ML 1ML Vial IV PRN (09:55)
[2025-01-02] MEDS ORDERED: Dexamethasone Sod Phos 10 MG/ML 1ML VIAL ONE (09:55)
[2025-01-02] MEDS ORDERED: Phenylephrine HCl 100 MCG/ML-NS 10MLSYR (1MG/10ML) ONE (10:11)
[2025-01-02] MEDS ORDERED: Ketorolac Tromethamine 30mg Vial ONE (11:19)
[2025-01-02] MEDS ORDERED: Ketorolac Tromethamine 15mg Vial IV SCH (12:00)
[2025-01-02] MEDS ORDERED: AmLODIPine Besylate 5 MG Tab PO SCH (18:00)
--- NOTE | 2025-01-02 18:15 | NUR ---
SHIFT SUMMARY WORKED w/ THERAPY. PAIN WELL CONTROLLED. SURG SITE WNL. EATING, DRINKING, VOIDING. PLEASANT & COOPERATIVE.
[2025-01-02] MEDS ORDERED: Vancomycin HCL 1,000 MG in NS 250 ML IV ONE (21:00)
[2025-01-02] MEDS ORDERED: Donepezil HCl 5 MG Tab PO SCH (21:00)
[2025-01-03 00:47] VITALS: BP 121/80
[2025-01-03 04:01] VITALS: BP 124/80
--- NOTE | 2025-01-03 04:40 | NUR ---
SHIFT SUMMARY POD 1 RIGHT TKA. AQUACEL 2X CDI. TOLERATING PO INTAKE. PAIN MANAGED PER EMAR. AMBULATING FWW, GB, SBA. IS VOIDING. ABX INFUSED PER ORDERS. HAS WORKED WITH THERAPY, PLAN TO WORK WITH THERAPY AGAIN TODAY AND POSSIBLY D/C HOME.
[2025-01-03 05:36] LABS: BASOPHILS ABSOLUTE AUTO 0.05 K/mm3 (0.00-0.23); BASOPHILS PERCENT AUTO 0 % (0-2); EOSINOPHILS PERCENT AUTO 0 % (0-6); Hematocrit 38.7 % (37.0-53.0); Hemoglobin 13.6 g/dL (13.5-17.5); IMMATURE GRAN ABSOLUTE AUTO 0.13 K/mm3 (0.00-0.10); IMMATURE GRAN PERCENT AUTO 1 % (0-1); LYMPHOCYTES ABSOLUTE AUTO 1.79 K/mm3 (0.84-5.20); LYMPHOCYTES PERCENT AUTO 8 % (21-46); MONOCYTES PERCENT AUTO 7 % (4-13); Mean Corpuscular HGB 29.7 pg (26.0-34.0); Mean Corpuscular HGB Conc 35.1 g/dL (31.5-36.5); Mean Corpuscular Volume 85 fL (80-100); Mean Platelet Volume 11.2 fL (9.1-12.4); NEUTROPHILS ABSOLUTE AUTO 18.16 K/mm3 (1.96-9.15); NEUTROPHILS PERCENT AUTO 84 % (41-73); Platelet Count 177 K/mm3 (150-400); RDW Standard Deviation 40.1 fL (35.1-46.3); Red Blood Cell Count 4.58 M/mm3 (4.30-5.90); White Blood Cell Count 21.73 K/mm3 (4.00-11.30)
[2025-01-03 05:59] LABS: Bun/Creatinine Ratio 31.1 (12.0-20.0); Calcium, Blood 8.5 mg/dL (8.5-10.1); Creatinine, Blood 0.87 mg/dL (0.60-1.20); Magnesium, Blood 2.3 mg/dL (1.6-2.4); Potassium, Blood 3.3 mmol/L (3.5-5.5)
[2025-01-03] MEDS ORDERED: Omeprazole 20 MG CapCR PO SCH (06:00)
[2025-01-03 07:19] VITALS: BP 130/78
[2025-01-03] MEDS ORDERED: Aspirin 81 MG Chew PO SCH (09:00)
[2025-01-03] MEDS ORDERED: OXYC5 PO (09:02)
[2025-01-03] MEDS ORDERED: ASPI81CH PO (09:02)
[2025-01-03] MEDS ORDERED: SULTRIDS PO (09:04)
--- NOTE | 2025-01-03 10:43 | NUR ---
DISCHARGE PT WORKED w/ THERAPY. PAIN WELL CONTROLLED. EATING, DRINKING, & VOIDING WELL. CAROLYN & POLAR PACK SENT w/ PT. ESCORTED OUT VIA W/C.
== END 2025-01-03 10:37 | disposition home or self-care (01) ==
LOC: ORSCMMR 07:14 → ORD 10:30 → ORSCMMR 10:30 → SURS 11:17 → ORSCMMR 01-03 10:37
PROVIDERS: Orthopaedic Surgery
PROC: 8E0Y0CZ Robotic Assisted Procedure of Lower Extremity, Open Approach (ICD-10-PCS; principal; 2025-01-02 08:30)
PROC: 0SRC0JA Replacement of Right Knee Joint with Synthetic Substitute, Uncemented, Open Approach (ICD-10-PCS; principal; 2025-01-02 08:30)
DX: M17.11 Unilateral primary osteoarthritis, right knee (principal); I10 Essential (primary) hypertension; E11.9 Type 2 diabetes mellitus without complications; K21.9 Gastro-esophageal reflux disease without esophagitis; G47.33 Obstructive sleep apnea (adult) (pediatric); Z79.899 Other long term (current) drug therapy; F17.210 Nicotine dependence, cigarettes, uncomplicated
CPT/HCPCS: 27447; 0055T; 36415; 73560-RT; 80048; 82947; 83735; 85025; 97110; 97116; 97162; 97530; A9270; C1713; C1776; J0171; J0690; J0735; J1100; J1885; J2250; J2371; J2405; J2704; J2795; J3010; J3370; J7050; J7120

== ENCOUNTER 2025-01-05 22:42 | Emergency (ER) | payer OTHER ==
[~2025-01-05] VITALS: Ht 172.7 cm; Wt 109.3 kg
[~2025-01-05 22:42] MED LIST changes: +ASPI81CH PO; +DICLOFENAC SOD100 GM TP; +KLOR-CON M1010 MEQ PO; +SULTRIDS PO; +ZYRTEC10 M2 PO
[2025-01-06 02:14] LABS: BASOPHILS ABSOLUTE AUTO 0.08 K/mm3 (0.00-0.23); BASOPHILS PERCENT AUTO 1 % (0-2); EOSINOPHILS ABSOLUTE AUTO 0.21 K/mm3 (0.00-0.68); EOSINOPHILS PERCENT AUTO 2 % (0-6); Hematocrit 36.8 % (37.0-53.0); Hemoglobin 12.7 g/dL (13.5-17.5); IMMATURE GRAN ABSOLUTE AUTO 0.22 K/mm3 (0.00-0.10); IMMATURE GRAN PERCENT AUTO 2 % (0-1); LYMPHOCYTES ABSOLUTE AUTO 1.53 K/mm3 (0.84-5.20); LYMPHOCYTES PERCENT AUTO 13 % (21-46); MONOCYTES ABSOLUTE AUTO 1.73 K/mm3 (0.16-1.47); MONOCYTES PERCENT AUTO 15 % (4-13); Mean Corpuscular HGB 29.8 pg (26.0-34.0); Mean Corpuscular HGB Conc 34.5 g/dL (31.5-36.5); Mean Corpuscular Volume 86 fL (80-100); Mean Platelet Volume 11.4 fL (9.1-12.4); NEUTROPHILS ABSOLUTE AUTO 7.84 K/mm3 (1.96-9.15); NEUTROPHILS PERCENT AUTO 68 % (41-73); Platelet Count 174 K/mm3 (150-400); RDW Coefficient Variation 13.6 % (11.7-14.2); RDW Standard Deviation 42.7 fL (35.1-46.3); Red Blood Cell Count 4.26 M/mm3 (4.30-5.90); White Blood Cell Count 11.61 K/mm3 (4.00-11.30)
[2025-01-06 02:36] LABS: CORONAVIRUS COVID-19 AG Negative (NEGATIVE); INFLUENZA A AG Negative (NEGATIVE); INFLUENZA B AG Negative (NEGATIVE)
[2025-01-06 02:48] LABS: Magnesium, Blood 2.2 mg/dL (1.6-2.4); Thyroid Stimulating Hormone 1.07 uIU/mL (0.360-4.800)
[2025-01-06 02:49] LABS: Albumin, Blood 3.3 g/dL (3.4-5.0); Albumin/Globulin Ratio 0.9 (0.8-1.8); Bilirubin, Total 0.9 mg/dL (0.1-1.0); Bun/Creatinine Ratio 28.2 (12.0-20.0); Calcium, Blood 8.6 mg/dL (8.5-10.1); Creatinine, Blood 1.03 mg/dL (0.60-1.20); Globulin, Blood 3.8 g/dL (2.2-4.0); Phosphorus, Blood 1.3 mg/dL (2.5-4.9); Potassium, Blood 2.9 mmol/L (3.5-5.5); Total Protein, Blood 7.1 g/dL (6.4-8.2)
[2025-01-06 02:51] LABS: Source, Urine Straight Cath
[2025-01-06] MEDS ORDERED: Potassium Chloride 20 MEQ TabCR PO ONE (02:55)
[2025-01-06] MEDS ORDERED: Potassium Phosphate Dibasic 30 MM in Dextrose 5% 500 ML IV ONE (02:55)
[2025-01-06 03:08] LABS: Blood, Urine 1+ (Neg); Glucose Qualitative, Urine Neg (Neg); Ketones, Urine 3+ (Neg); Leukocyte Esterase, Urine 1+ (Neg); Nitrite, Urine Neg (Neg); Protein, Urine 3+ (Neg); Specific Gravity, Urine 1.015 (1.003-1.022); Urobilinogen, Urine 3+ (Normal)
[2025-01-06] MEDS ORDERED: Ibuprofen 600 MG Tab PO ONE (03:10)
[2025-01-06 03:14] LABS: Bilirubin, Urine 1+ (Neg)
[2025-01-06 03:16] LABS: Appearance, Urine Clear (Clear); Bacteria Few /hpf; Color, Urine Amber (P-Yellow); Red Blood Cells, Urine 0-2 /hpf (0-2); Squamous Epithelial Cells Few /hpf (Few); White Blood Cells, Urine 0-2 /hpf (0-5)
[2025-01-06] MEDS ORDERED: NS 1,000 ML IV SCH (06:40)
[2025-01-06] MEDS ORDERED: Morphine Sulfate 4 MG/1 ML Injection IV ONE ×2 (10:10→10:30)
[2025-01-06 11:59] LABS: Phosphorus, Blood 2.1 mg/dL (2.5-4.9)
[2025-01-06 13:00] VITALS: BP 128/72
[2025-01-06] MEDS ORDERED: Potassium Phosphate,Monobasic 500 MG Tablet PO SCH (13:00)
== END 2025-01-06 15:43 ==
LOC: ER 22:42
PROVIDERS: Emergency Medicine; Student in an Organized Health Care Education/Training Program
DX: R53.1 Weakness (principal); I10 Essential (primary) hypertension; J44.9 Chronic obstructive pulmonary disease, unspecified; Z88.0 Allergy status to penicillin; Z91.013 Allergy to seafood; Z79.899 Other long term (current) drug therapy; Z79.51 Long term (current) use of inhaled steroids; Z79.52 Long term (current) use of systemic steroids; Z79.02 Long term (current) use of antithrombotics/antiplatelets; Z59.89 Other problems related to housing and economic circumstances
CPT/HCPCS: 71045; 73562-RT; 80053; 81001; 83735; 84100; 84132; 84443; 85025; 87086; 87428-QW; 93005; 93010; 96365; 96366; 96375; 97162; 97530; 99285; A9270; J2270; J7030; J7060

== ENCOUNTER 2025-05-07 11:46 | Emergency (ER) | payer OTHER ==
[~2025-05-07] VITALS: Ht 172.7 cm; Wt 104.3 kg
[2025-05-07] MEDS ORDERED: Morphine Sulfate 4 MG/1 ML Injection IV ONE (12:00)
[2025-05-07 12:35] LABS: BASOPHILS ABSOLUTE AUTO 0.04 K/mm3 (0.00-0.23); BASOPHILS PERCENT AUTO 0 % (0-2); EOSINOPHILS ABSOLUTE AUTO 0.45 K/mm3 (0.00-0.68); EOSINOPHILS PERCENT AUTO 5 % (0-6); Hematocrit 32.6 % (37.0-53.0); Hemoglobin 10.9 g/dL (13.5-17.5); IMMATURE GRAN ABSOLUTE AUTO 0.08 K/mm3 (0.00-0.10); IMMATURE GRAN PERCENT AUTO 1 % (0-1); LYMPHOCYTES ABSOLUTE AUTO 1.76 K/mm3 (0.84-5.20); LYMPHOCYTES PERCENT AUTO 19 % (21-46); MONOCYTES ABSOLUTE AUTO 1.28 K/mm3 (0.16-1.47); MONOCYTES PERCENT AUTO 14 % (4-13); Mean Corpuscular HGB Conc 33.4 g/dL (31.5-36.5); Mean Corpuscular Volume 89 fL (80-100); NEUTROPHILS ABSOLUTE AUTO 5.87 K/mm3 (1.96-9.15); NEUTROPHILS PERCENT AUTO 62 % (41-73); NRBC ABSOLUTE 0.00 K/mm3 (0.00-0.02); NRBC Auto 0.0 /100 WBC (0.0-0.2); Platelet Count 171 K/mm3 (150-400); RDW Coefficient Variation 13.6 % (11.7-14.2); RDW Standard Deviation 44.2 fL (35.1-46.3)
[2025-05-07 12:58] LABS: Anion Gap 6.0 mmol/L (3-11); Blood Urea Nitrogen 15.0 mg/dL (8-24); CO2, Blood 26.0 mmol/L (21-32); Calcium, Blood 8.2 mg/dL (8.5-10.1); Chloride, Blood 109.0 mmol/L (98-108); Creatinine, Blood 0.85 mg/dL (0.60-1.20); Glucose, Blood 110.0 mg/dL (70-99); Potassium, Blood 3.2 mmol/L (3.5-5.5); Sodium, Blood 138.0 mmol/L (136-145)
[2025-05-07 17:13] VITALS: BP 106/87
== END 2025-05-07 17:14 | disposition home or self-care (01) ==
LOC: ER 11:46
PROVIDERS: Emergency Medicine
DX: M54.50 Low back pain, unspecified (principal); M25.562 Pain in left knee; F03.90 Unspecified dementia, unspecified severity, without behavioral disturbance, psychotic disturbance, mood disturbance, and anxiety; I10 Essential (primary) hypertension; J44.9 Chronic obstructive pulmonary disease, unspecified; Z96.652 Presence of left artificial knee joint; Z98.1 Arthrodesis status; Z88.0 Allergy status to penicillin; Z91.013 Allergy to seafood; Z79.51 Long term (current) use of inhaled steroids; Z79.82 Long term (current) use of aspirin; Z79.899 Other long term (current) drug therapy
CPT/HCPCS: 51798; 72132; 73562-LT; 80048; 85025; 85651; 86140; 96374-59; 99284-25; J2270; Q9967